=== PATIENT | male | born 1980 | race African-American/Black ===

== ENCOUNTER 2025-06-18 13:21 | Emergency (ER) | payer OTHER ==
[~2025-06-18] VITALS: Ht 182.9 cm; Wt 111.0 kg
[2025-06-18 13:24] VITALS: O2SAT 97
[2025-06-18 13:57] VITALS: BP 130/93; PULSE 62; RESP 18; TEMP 36.8; O2SAT 100
== END 2025-06-18 13:59 ==
LOC: ER 13:21
DX: F41.9 Anxiety disorder, unspecified (principal); Z02.89 Encounter for other administrative examinations; Z65.3 Problems related to other legal circumstances
CPT/HCPCS: 93005; 99283